=== PATIENT | female | born 1990 | race Caucasian/White ===

== ENCOUNTER 2017-09-07 09:29 | Emergency (ER) | payer MEDICAID ==
[~2017-09-07] VITALS: Ht 162.6 cm; Wt 77.5 kg
[2017-09-07 09:33] VITALS: Ht 162.6 cm; Wt 77.5 kg
[2017-09-07 10:38] LABS: URINE BLOOD (Dip) POC 2+ (NEGATIVE)
[2017-09-07] MEDS ORDERED: IBUP-1542 PO (10:41)
--- NOTE | 2017-09-07 10:57 | ERD ---
ER Documentation Chief Complaint Chief Complaint LLQ AP pain x1 week, pain w/ urination HPI 26-year-old female presents with sharp, achy left lower quadrant groin pain for a week. She describes as sharp, worse with movement and started after she had done gym exercises where she was doing an apple workout. Despite the triage nurses note she does not have any dysuria, urgency or frequency. She states that she does not get irregular periods because of the Depakote shot, she has not had any abnormal vaginal discharge, vaginal bleeding. She denies fevers, chills, nausea, vomiting, diarrhea. Not tried anything for the pain thus far. ROS All systems reviewed and are negative except as per history of present illness. Medications Home Meds Active Scripts Ibuprofen* (Motrin*) 600 Mg Tab, 600 MG PO Q6, #30 TAB Prov:DARRELL MAHMOOD PA-C 09/07/17 Allergies Allergies: Coded Allergies: No Known Allergy (Unverified , 09/07/17) PMhx/Soc Medical and Surgical Hx: pt denies Medical Hx, pt denies Surgical Hx Hx Alcohol Use: No Hx Substance Use: No Hx Tobacco Use: No Smoking Status: Never smoker Physical Exam Vitals Vital Signs Date Time Temp Pulse Resp B/P Pulse Ox O2 Delivery O2 Flow Rate FiO2 09/07/17 09:33 99.1 104 18 125/64 98 Physical Exam General: Well-developed, well-nourished. The patient appears in no acute distress. HEENT: Head is normocephalic, atraumatic. No scleral icterus. Neck: Supple. Nontender. Lungs: Clear to auscultation. Normal air movement. Heart: Regular rate and rhythm. S1 and S2 are normal. No murmurs, gallops, or rubs. Abdomen: Soft, ttp in left groin, no masses, no hernia, nondistended. Bowel sounds are normoactive. Extremities: No clubbing or cyanosis. Normal pulses. Moving extremities x 4. No weakness. Neurologic: Alert and oriented 3. No focal deficits. Skin: Normal turgor. No rash or lesions. Results 24 hrs Laboratory Tests Test 09/07/17 10:38 Bedside Urine pH (LAB) 7.0 Bedside Urine Protein (LAB) Negative Bedside Urine Glucose (UA) Negative Bedside Urine Ketones (LAB) Negative Bedside Urine Blood 2+ Bedside Urine Nitrite (LAB) Negative Bedside Urine Leukocyte Esterase (L Negative DIAGNOSTIC IMAGING REPORT Patient: KAREN CATNOR : 1990 Age: 26 Sex: F MR #: [id number] DOS: 09/07/17 1042 Ordering MD: DARRELL MAHMOOD PA-C Location: [facility] Room/Bed: PROCEDURE: US Pelvis. CLINICAL INDICATION: Pelvic pain. Left lower quadrant pain. TECHNIQUE: The pelvis was evaluated with transabdominal and transvaginal sonography in the axial and sagittal planes. COMPARISON: No prior study is available for comparison. FINDINGS: Uterus: 6.2 x 3.4 x 4.1 cm. Endometrium: 2.7 mm. Right ovary: 2.7 x 2.0 x 2.3 cm. Left ovary: 2.4 x 1.7 x 2.2 cm. Uterine masses: None. Ovarian masses: None. Color Doppler and pulsed Doppler sonography demonstrate normal flow to the ovaries. Other pelvic masses: None. Free fluid: None. IMPRESSION: 1. Normal pelvic ultrasound. RPTAT: QQ .Navjot Pizarro MD, MD Date Time Electronically viewed and signed by .Navjot Pizarro MD, MD on 09/07/2017 12:01 .R/ CC: DARRLEL MAHMOOD PA-C Procedures/MDM 26-year-old female presents emergency department one-week history of left lower quadrant abdominal pain that appears to be more in the groin. Urine is negative for infection, and negative for . Pelvic ultrasound is unremarkable, no masses. Doubt diverticulitis. Pain is reproducible when she moves, and is most likely muscular. There is no evidence of any masses, no history to indicate diverticulitis, abscess, appendicitis, ovarian torsion. Differential diagnoses also include UTI, pyelonephritis, PID, tubo-ovarian abscess, ovarian cyst, , ectopic and among others. He is reproduced with movement, as well as palpation. Departure Diagnosis: Primary Impression: Abdominal pain Condition: Good Patient Instructions: Hip Strain DARRELL MAHMOOD PA-C Sep 07, 2017 10:57
--- NOTE | 2017-09-07 12:01 | RADRPT ---
PROCEDURE: US Pelvis. CLINICAL INDICATION: Pelvic pain. Left lower quadrant pain. TECHNIQUE: The pelvis was evaluated with transabdominal and transvaginal sonography in the axial a nd sagittal planes. COMPARISON: No prior study is available for comparison. FINDINGS: Uterus: 6.2 x 3.4 x 4.1 cm. Endometrium: 2.7 mm. Right ovary: 2.7 x 2.0 x 2.3 cm. Left ovary: 2.4 x 1.7 x 2.2 cm. Uterine masses: None. Ovarian masses: None. Color Doppler and pulsed Doppler sonography demonstrate normal flow to the ova ana. Other pelvic masses: None. Free fluid: None. IMPRESSION: 1. Normal pelvic ultrasound. RPTAT: QQ .Navjot Pizarro MD, Date Time Electronically viewed and signed by .Navjot Pizarro MD, on 09/07/2017 12:01 .R/
[2017-09-07 12:23] VITALS: BP 128/64; PULSE 69; RESP 18; TEMP 98.7
== END 2017-09-07 12:24 | disposition home or self-care (01) ==
LOC: FTE 09:29
DX: R10.32 Left lower quadrant pain (principal); R10.2 Pelvic and perineal pain
CPT/HCPCS: 76830; 76856; 81003; Z7502

== ENCOUNTER 2017-11-27 09:07 | Emergency (ER) | END 2017-11-27 10:18 | disposition home or self-care (01) ==